=== PATIENT | female | born 1945 | race Caucasian/White ===

== ENCOUNTER 2017-08-29 12:36 | Emergency (ER) | payer MEDICARE ==
[2017-08-29 13:08] VITALS: BP 134/76
--- NOTE | 2017-08-29 13:23 | UC ---
Lower Extremity/Ankle HPI - HPI Summary HPI Summary: Pt c/o right mid anterior foot pain, s/p tripping on uneven pavement yesterday. - History of Current Complaint Chief Complaint: UCLowerExtremity Stated Complaint: YESTERDAY FELL, RT FOOT PAIN Time Seen by Provider: 08/29/17 13:12 Hx Obtained From: Patient Hx Last Menstrual Period: n/a ?: No Onset/Duration: Sudden Onset, Lasting Days - 1 Severity Initially: Mild Severity Currently: Moderate Aggravating Factor(s): Standing, Ambulation Alleviating Factor(s): Rest, Elevation Able to Bear Weight: Yes - minimal with foot inverted - Risk Factors Gout Risk Factors: Age Over 40 - Allergies/Home Medications Allergies/Adverse Reactions: Allergies Allergy/AdvReac Type Severity Reaction Status Date / Time No Known Allergies Allergy Verified 08/29/17 13:08 Home Medications: Home Medications NK [No Home Medications Reported] 08/29/17 [History Confirmed 08/29/17] PMH/Surg Hx/FS Hx/Imm Hx Previously Healthy: Yes - Surgical History Surgical History: None - Family History Known Family History: Positive: Cardiac Disease - Social History Occupation: Retired Lives: With Family Alcohol Use: None Substance Use Type: None Smoking Status (MU): Never Smoked Tobacco Have You Smoked in the Last Year: No Review of Systems Constitutional: Negative Skin: Bruising - right anterior mid foot small bruise Eyes: Negative ENT: Negative Respiratory: Negative Cardiovascular: Negative Gastrointestinal: Negative Genitourinary: Negative Motor: Negative Neurovascular: Negative Musculoskeletal: Decreased ROM - right foot and ankle, Edema, Myalgia Neurological: Negative Psychological: Negative Is Patient Immunocompromised?: No All Other Systems Reviewed And Are Negative: Yes Physical Exam Triage Information Reviewed: Yes Appearance: Well-Appearing Vital Signs: Initial Vital Signs Temp 98 F 08/29/17 13:02 Pulse 78 08/29/17 13:02 Resp 16 08/29/17 13:02 BP 134/76 08/29/17 13:02 Pulse Ox 98 08/29/17 13:02 Vital Signs Reviewed: Yes Eye Exam: Normal ENT Exam: Normal Neck exam: Normal Respiratory: Positive: No respiratory distress Musculoskeletal Exam: Other Musculoskeletal: Positive: ROM Limited @ - right ankle and foot, Edema @ - right lateral malleolus, Neurological Exam: Normal Psychological Exam: Normal Skin Exam: Other - bruise, right anterior mid foot Lower Extremity Course/Dx - Differential Dx/Diagnosis Differential Diagnosis/HQI/PQRI: Contusion, Sprain Provider Diagnoses: right foot sprain. right foot contusion Discharge - Discharge Plan Condition: Stable Disposition: HOME Patient Education Materials: Foot Sprain (ED) Referrals: [facility] [Outside] - If Needed Lali Clark MD [Medical Doctor] - If Needed Additional Instructions: Xray results: IMPRESSION: OSTEOARTHRITIS. NO ACUTE OSSEOUS INJURY. IF SYMPTOMS PERSIST, RECOMMEND REPEAT IMAGING.
--- NOTE | 2017-08-29 13:42 | RAD ---
HISTORY: Right foot trauma COMPARISONS: None VIEWS: 3, Frontal, lateral, and oblique views of the right foot FINDINGS: BONE DENSITY: Normal. BONES: There is no displaced fracture. There are calcaneal enthesophytes JOINTS: There is osteoarthritis of the midfoot and the first MTP joint. ALIGNMENT: There is no dislocation. There is mild hallux valgus SOFT TISSUES: Unremarkable. OTHER FINDINGS: None. IMPRESSION: OSTEOARTHRITIS. NO ACUTE OSSEOUS INJURY. IF SYMPTOMS PERSIST, RECOMMEND REPEAT IMAGING.
== END 2017-08-29 14:02 | disposition home or self-care (01) ==
LOC: EDBD → UCCORT 12:36
DX: S93.601A Unspecified sprain of right foot, initial encounter (principal); S90.31XA Contusion of right foot, initial encounter; W18.09XA Striking against other object with subsequent fall, initial encounter; Y92.9 Unspecified place or not applicable; M19.071 Primary osteoarthritis, right ankle and foot
CPT/HCPCS: 99202; G0463